=== PATIENT | male | born 1985 | race Caucasian/White ===

== ENCOUNTER 2017-09-27 11:59 | Emergency (ER) | payer SELFPAY ==
[~2017-09-27] VITALS: Ht 162.6 cm; Wt 63.6 kg
[2017-09-27] MEDS ORDERED: IBUPROFEN 600 MG TABLET ONE (12:20)
[2017-09-27] MEDS ORDERED: IBUPROFEN 600 MG TABLET PO ONE (12:30)
[2017-09-27 13:02] LABS: INFLUENZA TYPE A NEGATIVE FOR TYPE A (NEGATIVE); INFLUENZA TYPE B POSITIVE FOR TYPE B (NEGATIVE)
[2017-09-27] MEDS ORDERED: SODIUM CHLORIDE 0.9% 1,000 ML IV ONE (14:45)
[2017-09-27 14:52] VITALS: BP 114/71
== END 2017-09-27 16:02 | disposition home or self-care (01) ==
LOC: EMS 12:07
DX: J11.1 Influenza due to unidentified influenza virus with other respiratory manifestations (principal)
CPT/HCPCS: 71046; 87804; 99285

== ENCOUNTER 2020-03-16 15:41 | Emergency (ER) | payer OTHER ==
[~2020-03-16] VITALS: Ht 165.1 cm; Wt 58.2 kg
[2020-03-16] MEDS ORDERED: DOLU1TAB2 PO (15:44)
[2020-03-16] MEDS ORDERED: SULFAMETHOX/TRIMETH DS 800-160 MG/TABLET PO ONE (16:15)
[2020-03-16] MEDS ORDERED: ACETAMINOPHEN 325 MG TABLET PO ONE (16:15)
[2020-03-16] MEDS ORDERED: CEPHALEXIN MONOHYDRATE 500 MG CAPSULE PO ONE (16:15)
[2020-03-16] MEDS ORDERED: IBUPROFEN 600 MG TABLET PO ONE (16:15)
[2020-03-16] MEDS ORDERED: PERTUSS(ACELL),DIPH,TET VAC/PF 0.5 ML VIAL IM ONE (16:15)
[2020-03-16 17:07] VITALS: BP 113/77
== END 2020-03-16 17:15 | disposition home or self-care (01) ==
LOC: EMS 15:45
DX: T63.301A Toxic effect of unspecified spider venom, accidental (unintentional), initial encounter (principal); L03.114 Cellulitis of left upper limb; Y92.89 Other specified places as the place of occurrence of the external cause
CPT/HCPCS: 90471; 90715

== ENCOUNTER 2020-03-19 16:45 | Emergency (ER) | payer OTHER ==
[~2020-03-19] VITALS: Ht 165.1 cm; Wt 58.2 kg
[~2020-03-19 16:45] MED LIST: DOLU1TAB2 PO
[2020-03-19 16:50] VITALS: BP 104/66
== END 2020-03-19 17:27 | disposition home or self-care (01) ==
LOC: EMS 16:45
DX: L08.89 Other specified local infections of the skin and subcutaneous tissue (principal)